=== PATIENT | male | born 1960 | race Caucasian/White ===

== ENCOUNTER 2022-07-13 13:25 | Inpatient (IN) | payer MEDICARE ==
[~2022-07-13] VITALS: Ht 165.1 cm; Wt 84.8 kg
[~2022-07-13 13:25] MED LIST: ACTOS15 MG PO; ASPIRIN CHEWABL81 MG PO; CRESTOR20 MG PO; FOLIC ACID1 MG PO; LAMICTAL100 MG PO; LITHIUM CARBON300 MG PO; METFORMIN HCL500 MG PO; PRINIVIL20 MG PO; SYNTHROID25 MCG PO; ULTRA-LIGHT RO1 EACH XX; VITAMIN D32400 UNIT/ PO
[2022-07-13 14:44] LABS: BASOPHIL 0.3 % (0-2); EOSINOPHIL 1.5 % (0-5); HCT 43.7 % (42.0-52.0); HGB 14.7 g/dl (13.2-18.0); LYMPHOCYTE 8.2 % (15-48); MCH 30.9 pg (25.0-31.0); MCHC 33.6 g/dL (32.0-36.0); MONOCYTE 9.2 % (0-12); MPV 9.9 fL (6.0-9.5); NEUTROPHIL 80.4 % (41-80); NRBC 0; PLT 325 K/uL (150-400); RBC 4.75 M/uL (4.70-6.00); RDW 11.9 % (11.5-14.0); WBC 14.7 K/uL (4.0-10.5)
[2022-07-13 14:48] LABS: INR 1.03 (0.9-1.2); PROTHROMBIN TIME 13.2 SECONDS (11.9-13.9)
[2022-07-13 15:05] LABS: ALBUMIN 4.7 g/dL (3.4-5.0); ALKALINE PHOSHATASE 182 U/L (46-116); ALT 47 U/L (16-63); AST 43 U/L (15-37); BILIRUBIN - TOTAL 0.4 mg/dL (0.2-1.0); BUN 66 mg/dL (7-18); BUN/CREAT RATIO (CALC) 15.2 RATIO; CHLORIDE 96 mmol/L (98-107); CO2 (BICARBONATE) 22 mmol/L (21-32); CREATININE 4.35 mg/dL (0.67-1.17); GLOBULIN (CALCULATION) 2.9 g/dL; GLUCOSE 87 mg/dL (74-106); MAGNESIUM 2.8 mg/dL (1.8-2.4); POTASSIUM 3.8 mmol/L (3.5-5.1); TOTAL PROTEIN 7.6 g/dL (6.4-8.2)
[2022-07-13 15:11] LABS: LACTIC ACID 0.8 mmol/L (0.4-1.9)
[2022-07-13 15:47] LABS: BILIRUBIN 2+ mg/dL (NEGATIVE); BLOOD NEGATIVE Ery/uL (NEGATIVE); CLARITY CLEAR (CLEAR); COLOR YELLOW (YELLOW); GLUCOSE (U) NORMAL (NORMAL); LEUKOCYTES NEGATIVE Leu/uL (NEGATIVE); NITRITE NEGATIVE (NEGATIVE); PROTEIN 2+ mg/dL (NEGATIVE); SPECIFIC GRAVITY >=1.030 (1.001-1.030); UROBILINOGEN 0.2 mg/dL (0.2-1.0); pH 5.5 (5.0-9.0)
[2022-07-13 15:57] LABS: AMPHETAMINES NEGATIVE (NEGATIVE); BARBITURATES NEGATIVE (NEGATIVE); ECSTASY (MDMA) NEGATIVE (NEGATIVE); MARIJUANA (THC) NEGATIVE (NEGATIVE); METHADONE NEGATIVE (NEGATIVE); OPIATES NEGATIVE (NEGATIVE); OXYCODONE NEGATIVE (NEGATIVE)
[2022-07-13 16:03] LABS: BACTERIA 1+
[2022-07-13] MEDS ORDERED: BENAZEPRIL HCL20 M1 PO (18:03)
[2022-07-13] MEDS ORDERED: ZETIA10 MG PO (18:04)
[2022-07-13] MEDS ORDERED: CENTRUM ADULTS1 EACH PO (18:06)
[2022-07-14 07:26] LABS: BUN/CREAT RATIO (CALC) 18.3 RATIO; CREATININE 2.79 mg/dL (0.67-1.17); MAGNESIUM 2.7 mg/dL (1.8-2.4); POTASSIUM 3.5 mmol/L (3.5-5.1)
[2022-07-14 08:05] LABS: FT4 (FREE T4) 1.3 ng/dL (0.76-1.46)
[2022-07-15 05:51] LABS: BASOPHIL 0.4 % (0-2); EOSINOPHIL 2.4 % (0-5); HCT 37.9 % (42.0-52.0); HGB 12.9 g/dl (13.2-18.0); LYMPHOCYTE 11.8 % (15-48); MCH 31.1 pg (25.0-31.0); MCV 91.3 fL (78.0-100.0); MONOCYTE 9.9 % (0-12); MPV 9.7 fL (6.0-9.5); NEUTROPHIL 75.1 % (41-80); NRBC 0; PLT 270 K/uL (150-400); RBC 4.15 M/uL (4.70-6.00); RDW 11.6 % (11.5-14.0); WBC 11.4 K/uL (4.0-10.5)
[2022-07-15 06:50] LABS: ALBUMIN 3.5 g/dL (3.4-5.0); CREATININE 1.39 mg/dL (0.67-1.17); PHOSPHORUS 2.4 mg/dL (2.6-4.7); POTASSIUM 3.1 mmol/L (3.5-5.1)
[2022-07-15 07:10] LABS: MAGNESIUM 1.4 mg/dL (1.8-2.4)
[2022-07-16 06:11] LABS: HGB 12.6 g/dl (13.2-18.0); MCH 31.2 pg (25.0-31.0); MCV 89.1 fL (78.0-100.0); MPV 9.9 fL (6.0-9.5); RBC 4.04 M/uL (4.70-6.00); RDW 11.7 % (11.5-14.0); WBC 11.2 K/uL (4.0-10.5)
[2022-07-16 07:29] LABS: IRON % SATURATION 20.7 %SAT (20-50)
[2022-07-16 07:31] LABS: BUN/CREAT RATIO (CALC) 8.3 RATIO; CREATININE 1.09 mg/dL (0.67-1.17); MAGNESIUM 1.2 mg/dL (1.8-2.4); POTASSIUM 2.8 mmol/L (3.5-5.1)
[2022-07-16 11:10] LABS: PTH, INTACT 16 pg/mL (15-65)
--- NOTE | 2022-07-16 14:16 | NUR ---
07/16/22 Mr. Verde continues to be experiencing etoh withdrawal and unable to participate in an assessment. Ms. Verde reports: Mr. Verde lives at home with his spouse and 2 children; ages 18 and 20. According to Ms. Verde, he was "falling around for the past 2 weeks. Mr. Verde does not have any medical DME. His PCP is Vanita Bernard, at [facility]. - Mr. Verde is treated at [facility] approximately every 1 - 2 months r/t dx of bipolar disease. Ms. Verde reports Mr. Verde to drink 12 beers pernight. She reports that he has attended AA meetings in the past.
[2022-07-16 15:35] LABS: BUN/CREAT RATIO (CALC) 7.4 RATIO; CREATININE 1.08 mg/dL (0.67-1.17); POTASSIUM 3.2 mmol/L (3.5-5.1)
--- NOTE | 2022-07-16 19:48 | NUR ---
ALL BEHAVIORAL RESTRAINT CHARTED IN ERROR.
--- NOTE | 2022-07-16 21:45 | NUR ---
1999 INCREASED RESTLESSNESS, REMOVING LEAD TO CARDIAC MONITORING, ANCHOR TO F/C REPLACED. ATIVAN 2MG GIVEN IVSP. 2044- PATIENT REMAINS RESTLESS REQUIRING FREQUENT REDIRECTION FROM ATTEMPTS TO GET OUT OF BED. BED ALARM ACTIVE AND ALL WHEELS LOCKED WITH BED IN LOWEST POSITION, 1 ON 1 SITTER REMAINS AT BEDSIDE.
--- NOTE | 2022-07-16 22:33 | NUR ---
2230 PATIENT WITH NOTED SNORING, RESTLESSNESS RESOLVED, SAFETY MEASURES REMAIN INPLACE WITH 1 ON 1 NURSING MONITORING.
--- NOTE | 2022-07-17 04:10 | NUR ---
0345- PATIENT RESTING QUIETLY NOTED DECREASED RESTLESSNESS, CARDIAC MONIOTORING AND O2 SAT MONITORING REAPPLIED, AT PRESENT NO ATTEMPTS TO SELF REMOVE.
--- NOTE | 2022-07-17 04:25 | NUR ---
PATIENT PULLED O2 MONITOR STRIP UNTIL WIRES WERE EXPOSED, O2 MONITORING REMOVED, SAT 98% ON R/A.
[2022-07-17 06:05] LABS: HCT 37.1 % (42.0-52.0); MCH 30.8 pg (25.0-31.0); MCV 87.9 fL (78.0-100.0); MPV 10.1 fL (6.0-9.5); RBC 4.22 M/uL (4.70-6.00); RDW 11.6 % (11.5-14.0); WBC 12.3 K/uL (4.0-10.5)
[2022-07-17 06:50] LABS: ALBUMIN 3.7 g/dL (3.4-5.0); BILIRUBIN - DIRECT 0.1 mg/dL (0.00-0.20); BILIRUBIN - TOTAL 0.4 mg/dL (0.2-1.0); BUN/CREAT RATIO (CALC) 4.9 RATIO; CREATININE 1.02 mg/dL (0.67-1.17); GLOBULIN (CALCULATION) 3.2 g/dL; MAGNESIUM 1.4 mg/dL (1.8-2.4); TOTAL PROTEIN 6.9 g/dL (6.4-8.2)
--- NOTE | 2022-07-17 23:45 | NUR ---
PT HALLUCINATING, GRABBING AT THE AIR, KEEPS SAYING "DO YOU HEAR THAT?" VERY RESTLESS, UP ON ALL FOURS. ATTEMPTS TO REORIENT PATIENT UNSUCCESSFULL. ATIVAN IVP GIVEN PER [facility] PROTOCOL. 1:1 REMAINS AT BEDSIDE FOR SAFETY. WILL CONTINUE TO MONITOR
--- NOTE | 2022-07-18 00:55 | NUR ---
PT STILL RESTLESS AND FIDGITY GRASPING AT THE AIR. ATIVAN GIVEN PER [facility] PROTOCOL. 1:1 SITTER STILL AT BEDSIDE FOR SAFETY. WILL CONTINUE TO MONITOR
[2022-07-18 06:34] LABS: HCT 41.1 % (42.0-52.0); HGB 14.5 g/dl (13.2-18.0); MCH 31.2 pg (25.0-31.0); MCHC 35.3 g/dL (32.0-36.0); MCV 88.4 fL (78.0-100.0); RBC 4.65 M/uL (4.70-6.00); RDW 11.9 % (11.5-14.0); WBC 10.9 K/uL (4.0-10.5)
[2022-07-18 06:59] LABS: BUN/CREAT RATIO (CALC) 3.1 RATIO; CREATININE 0.96 mg/dL (0.67-1.17); MAGNESIUM 1.8 mg/dL (1.8-2.4); POTASSIUM 3.2 mmol/L (3.5-5.1)
--- NOTE | 2022-07-18 08:17 | NUR ---
[facility] SCORE OF 13. HELD ATIVAN DOSE PER DR MARTINEZ ORDER TO SEE HOW THE PATIENT DOES. WCTM.
--- NOTE | 2022-07-19 00:25 | NUR ---
[facility] SCORE - 14 (SEE MAR FOR TREATMENT) PT IS REPORTING VISUAL HALLUCINATIONS & BEING MODERATELY ANXIOUS
--- NOTE | 2022-07-19 03:15 | NUR ---
[facility] SCORE 21 (SEE MAR) - PT IS HAVING AUDIBLE & VISUAL HALLUCINATIONS, CONFUSION, & TREMORS
--- NOTE | 2022-07-19 04:55 | NUR ---
[facility] SCORE 19 (SEE MAR) - PT HAVING VISUAL HALLUCINATIONS, ANXIETY, AND TREMORS
[2022-07-19 06:05] LABS: HCT 39.3 % (42.0-52.0); HGB 13.9 g/dl (13.2-18.0); MCH 31.4 pg (25.0-31.0); MCHC 35.4 g/dL (32.0-36.0); MCV 88.7 fL (78.0-100.0); MPV 9.6 fL (6.0-9.5); RBC 4.43 M/uL (4.70-6.00); RDW 12.1 % (11.5-14.0); WBC 9.5 K/uL (4.0-10.5)
[2022-07-19 06:28] LABS: CREATININE 1.01 mg/dL (0.67-1.17); POTASSIUM 3.5 mmol/L (3.5-5.1)
--- NOTE | 2022-07-20 01:00 | NUR ---
[facility] SCORE 7
[2022-07-21 06:18] LABS: HCT 39.7 % (42.0-52.0); HGB 13.7 g/dl (13.2-18.0); MCH 30.8 pg (25.0-31.0); MCHC 34.5 g/dL (32.0-36.0); MCV 89.2 fL (78.0-100.0); MPV 9.2 fL (6.0-9.5); RBC 4.45 M/uL (4.70-6.00); RDW 12.6 % (11.5-14.0); WBC 8.9 K/uL (4.0-10.5)
[2022-07-21 07:40] LABS: BUN/CREAT RATIO (CALC) 8.7 RATIO; CREATININE 1.03 mg/dL (0.67-1.17); POTASSIUM 2.9 mmol/L (3.5-5.1)
[2022-07-21] MEDS ORDERED: MAG-OXIDE 400M400 MG PO (10:11)
[2022-07-21] MEDS ORDERED: KLOR-CON M2020 MEQ PO (10:27)
== END 2022-07-21 12:50 | disposition home or self-care (01) | DRG 896 ==
LOC: FER 13:25 → FICU 16:59 → FTCU 07-18 08:18 → FMS 07-20 09:37
PROVIDERS: Allergy & Immunology Allergy; Emergency Medicine; ADMIT Family Medicine
PROC: HZ2ZZZZ Detoxification Services for Substance Abuse Treatment (ICD-10-PCS; principal; 2022-07-13)
DX: F10.131 Alcohol abuse with withdrawal delirium (principal); G92.8 Other toxic encephalopathy; N17.9 Acute kidney failure, unspecified; E86.0 Dehydration; I10 Essential (primary) hypertension; E87.6 Hypokalemia; E83.42 Hypomagnesemia; F31.9 Bipolar disorder, unspecified; T43.595A Adverse effect of other antipsychotics and neuroleptics, initial encounter; F41.9 Anxiety disorder, unspecified; D64.9 Anemia, unspecified; E78.5 Hyperlipidemia, unspecified; E11.9 Type 2 diabetes mellitus without complications; E89.0 Postprocedural hypothyroidism; Z79.899 Other long term (current) drug therapy; Z79.84 Long term (current) use of oral hypoglycemic drugs; Z79.82 Long term (current) use of aspirin
CPT/HCPCS: 36415; 70450; 71045; 80048; 80053; 80069; 80076; 80178; 80305; 81001; 82140; 82310; 82607; 82962; 83036; 83540; 83550; 83605; 83735; 83970; 84439; 84443; 85025; 85610; 85730; 87088; 93005; 96374; 97162; 97167; 97530-GP; G0480; J1630; J2060; J2560; J3411; J3475; J7050; J7120